=== PATIENT | female | born 1990 | race Caucasian/White ===

== ENCOUNTER → 2017-02-19 | Outpatient (CLI) | payer BC ==
[2017-02-19 07:46] LABS: BASOPHILS % 0.6 % (0.0-2.0); EOSINOPHILS % 3.7 % (0.0-5.0); HEMATOCRIT. 37.2 % (36.0-48.0); HEMOGLOBIN. 12.7 g/dL (12.0-16.0); LYMPHOCYTES % 41.5 % (20.0-50.0); MEAN CORPUSCULAR HEMOGLOBIN 28.9 pg (28.0-32.0); MEAN CORPUSCULAR VOLUME 84.6 fL (81.0-99.0); MONOCYTES % 8.8 % (2.0-8.0); NEUTROPHILS % 45.4 % (40.0-76.0); PLATELET 257 x1000/uL (130-400); RED CELL DISTRIBUTION WIDTH 14.4 % (11.6-14.6)
[2017-02-19 08:14] LABS: CARBON DIOXIDE 26 mEq/L (21-32); CHLORIDE 104 mEq/L (98-107); HDL CHOLESTEROL 46 mg/dL (40-59); LDL CHOLESTEROL 166 mg/dL (5-100); T4 FREE 1.04 ng/dL (0.76-1.46)
== END | disposition home or self-care (01) ==
LOC: LAB 07:15
PROVIDERS: ATTEND Specialist
DX: R00.9 Unspecified abnormalities of heart beat (principal)
CPT/HCPCS: 36415; 80053; 80061; 83036; 84439; 84443; 84481; 85025

== ENCOUNTER 2018-01-25 07:17 | Emergency (ER) | payer BC ==
[~2018-01-25] VITALS: Ht 160 cm; Wt 81.6 kg
[2018-01-25] MEDS ORDERED: SODIUM CHLORIDE 0.9% 1,000 ML IV ONE (07:33)
[2018-01-25 08:32] LABS: CLARITY URINE CLOUDY (CLEAR); COLOR URINE AMBER (YELLOW); KETONES URINE NEGATIVE (NEGATIVE); LEUKOCYTE ESTERASE URINE 1+ (NEGATIVE); NITRITE URINE NEGATIVE (NEGATIVE); OCCULT BLOOD URINE 3+ (NEGATIVE); PH URINE 5.5 (4.5-8.0); PROTEIN URINE 1+ (NEGATIVE); UROBILINOGEN URINE 0.2 E.U./dL (0.2-1.0)
[2018-01-25 08:54] LABS: *BARBITURATES SCREEN URINE NEGATIVE (NEGATIVE); *BENZODIAZEPINES SCREEN URINE NEGATIVE (NEGATIVE)
[2018-01-25 08:56] LABS: *COCAINE SCREEN URINE NEGATIVE (NEGATIVE); CANNABINOID URINE SCREEN NEGATIVE (NEGATIVE); METHADONE URINE SCREEN NEGATIVE (NEGATIVE); OPIATES URINE SCREEN NEGATIVE (NEGATIVE); PHENCYCLIDINE URINE SCREEN NEGATIVE (NEGATIVE)
[2018-01-25 08:57] LABS: *AMPHETAMINES SCREEN URINE NEGATIVE (NEGATIVE)
[2018-01-25 09:09] LABS: BASOPHILS % 0.7 % (0.0-2.0); EOSINOPHILS % 2.9 % (0.0-5.0); HEMATOCRIT. 38.4 % (36.0-48.0); HEMOGLOBIN. 13.4 g/dL (12.0-16.0); LYMPHOCYTES % 28.6 % (20.0-50.0); MEAN CORPUSCULAR HEMOGLOBIN 29.7 pg (28.0-32.0); MEAN CORPUSCULAR VOLUME 85.3 fL (81.0-99.0); MEAN PLATELET VOLUME 7.8 fl (7.4-10.4); MONOCYTES % 6.7 % (2.0-8.0); NEUTROPHILS % 61.1 % (40.0-76.0); PLATELET 286 x1000/uL (130-400)
[2018-01-25 09:15] LABS: CHLORIDE 103 mEq/L (98-107)
[2018-01-25 09:17] LABS: PARTIAL THROMBOPLASTIN TIME 28.1 sec (23.4-31.0); PROTHROMBIN TIME 10.1 sec (9.1-11.1)
[2018-01-25 09:19] LABS: HCG SCREEN NEGATIVE
[2018-01-25 09:26] LABS: B-HCG QUANTITATIVE < 1 mIU/mL (<3)
[2018-01-25 11:15] VITALS: BP 131/81
== END 2018-01-25 11:51 | disposition home or self-care (01) ==
LOC: ER 07:17
DX: N93.8 Other specified abnormal uterine and vaginal bleeding (principal); N39.0 Urinary tract infection, site not specified; R10.2 Pelvic and perineal pain; Z88.1 Allergy status to other antibiotic agents
CPT/HCPCS: 36415; 76830; 76856; 80048; 80305; 81003; 81025; 84702; 84703; 85025; 85610; 85730; 86850; 86900; 86901; 99285; J7030

== ENCOUNTER → 2018-10-31 | Outpatient (CLI) | payer BC ==
[2018-10-31 07:36] LABS: COLOR URINE YELLOW (YELLOW); KETONES URINE NEGATIVE (NEGATIVE); LEUKOCYTE ESTERASE URINE 1+ (NEGATIVE); NITRITE URINE NEGATIVE (NEGATIVE); OCCULT BLOOD URINE NEGATIVE (NEGATIVE); PROTEIN URINE NEGATIVE (NEGATIVE); SPECIFIC GRAVITY URINE 1.028 (1.005-1.030); UROBILINOGEN URINE 0.2 E.U./dL (0.2-1.0)
[2018-10-31 07:39] LABS: CLARITY URINE CLEAR (CLEAR)
[2018-10-31 07:43] LABS: CHLORIDE 105 mEq/L (98-107)
[2018-10-31 07:48] LABS: BASOPHILS % 0.6 % (0.0-2.0); EOSINOPHILS % 2.6 % (0.0-5.0); HEMATOCRIT. 40.3 % (36.0-48.0); HEMOGLOBIN. 13.7 g/dL (12.0-16.0); LYMPHOCYTES % 33.4 % (20.0-50.0); MEAN CORPUSCULAR HEMOGLOBIN 29.1 pg (28.0-32.0); MEAN CORPUSCULAR VOLUME 85.7 fL (81.0-99.0); MEAN PLATELET VOLUME 8.2 fl (7.4-10.4); MONOCYTES % 7.4 % (2.0-8.0); PLATELET 296 x1000/uL (130-400)
[2018-10-31 07:51] LABS: LDL CHOLESTEROL 149 mg/dL (5-100)
[2018-10-31 07:53] LABS: HDL CHOLESTEROL 45 mg/dL (40-59)
== END | disposition home or self-care (01) ==
LOC: LAB 07:08
DX: Z00.00 Encounter for general adult medical examination without abnormal findings (principal)
CPT/HCPCS: 36415; 80061; 83036; 84443

== ENCOUNTER 2022-03-01 06:48 | Emergency (ER) | payer BC ==
[~2022-03-01] VITALS: Ht 160 cm; Wt 85.1 kg
[2022-03-01 06:55] VITALS: BP 112/68
[2022-03-01 08:05] LABS: CLARITY URINE CLOUDY (CLEAR); COLOR URINE YELLOW (YELLOW); KETONES URINE NEGATIVE (NEGATIVE); LEUKOCYTE ESTERASE URINE 3+ (NEGATIVE); NITRITE URINE NEGATIVE (NEGATIVE); OCCULT BLOOD URINE 3+ (NEGATIVE); PH URINE 6.5 (4.5-8.0); PROTEIN URINE TRACE (NEGATIVE); SPECIFIC GRAVITY URINE 1.022 (1.005-1.030)
[2022-03-01 08:43] LABS: BASOPHILS % 0.6 % (0.0-2.0); EOSINOPHILS % 1.7 % (0.0-5.0); HEMATOCRIT. 37.3 % (36.0-48.0); HEMOGLOBIN. 12.9 g/dL (12.0-16.0); LYMPHOCYTES % 21.5 % (20.0-50.0); MEAN CORPUSCULAR HEMOGLOBIN 30.6 pg (28.0-32.0); MEAN CORPUSCULAR VOLUME 88.5 fL (81.0-99.0); MEAN PLATELET VOLUME 7.8 fl (7.4-10.4); MONOCYTES % 6.6 % (2.0-8.0); NEUTROPHILS % 69.6 % (40.0-76.0); PLATELET 309 x1000/uL (130-400); RED BLOOD CELL COUNT 4.22 mill/uL (4.2-5.4); RED CELL DISTRIBUTION WIDTH 14.7 % (11.6-14.6)
[2022-03-01 08:58] LABS: CHLORIDE 105 mEq/L (98-107)
[2022-03-01] MEDS ORDERED: NITR100C PO (09:17)
[2022-03-01 09:34] LABS: B-HCG QUANTITATIVE 130373 mIU/mL (<3)
== END 2022-03-01 09:31 | disposition home or self-care (01) ==
LOC: ER 06:48
DX: O20.0 Threatened abortion (principal); O23.41 Unspecified infection of urinary tract in pregnancy, first trimester; N39.0 Urinary tract infection, site not specified; Z3A.01 Less than 8 weeks gestation of pregnancy; Z98.890 Other specified postprocedural states; Z88.1 Allergy status to other antibiotic agents
CPT/HCPCS: 36415; 76801; 80053; 81003; 81025; 84702; 85025; 86850; 86900; 99284

== ENCOUNTER → 2022-06-20 | Outpatient (CLI) | payer BC ==
[~2022-06-20] MED LIST: NITR100C PO
== END | disposition home or self-care (01) ==
LOC: US 15:51
PROVIDERS: ATTEND Obstetrics & Gynecology
DX: Z36.89 Encounter for other specified antenatal screening (principal); Z3A.24 24 weeks gestation of pregnancy
CPT/HCPCS: 76805

== ENCOUNTER 2022-10-06 17:09 | Inpatient (IN) | payer BC ==
[~2022-10-06] VITALS: Ht 160 cm; Wt 74.8 kg
[2022-10-06] MEDS ORDERED: PREN-176 PO (20:53)
[2022-10-06] MEDS: LACTATED RINGERS 1,000 ML IV SCH ×2 (21:42→22:07)
[2022-10-06 21:47] LABS: BASOPHILS % 0.3 % (0.0-2.0); EOSINOPHILS % 0.9 % (0.0-5.0); HEMATOCRIT. 35.3 % (36.0-48.0); HEMOGLOBIN. 12.1 g/dL (12.0-16.0); LYMPHOCYTES % 21.9 % (20.0-50.0); MEAN CORPUSCULAR HEMOGLOBIN 31.2 pg (28.0-32.0); MEAN CORPUSCULAR VOLUME 91.1 fL (81.0-99.0); MEAN PLATELET VOLUME 9.6 fl (7.4-10.4); MONOCYTES % 9.6 % (2.0-8.0); NEUTROPHILS % 67.3 % (40.0-76.0); PLATELET 287 x1000/uL (130-400); RED BLOOD CELL COUNT 3.88 mill/uL (4.2-5.4)
[2022-10-06 21:49] LABS: CLARITY URINE TURBID (CLEAR); COLOR URINE DARK YELLOW (YELLOW); KETONES URINE TRACE (NEGATIVE); LEUKOCYTE ESTERASE URINE 3+ (NEGATIVE); NITRITE URINE POSITIVE (NEGATIVE); OCCULT BLOOD URINE NEGATIVE (NEGATIVE); PROTEIN URINE 1+ (NEGATIVE); SPECIFIC GRAVITY URINE 1.025 (1.005-1.030)
[2022-10-06 22:00] LABS: INR 0.9; PARTIAL THROMBOPLASTIN TIME 29.1 sec (23.4-31.0)
[2022-10-06 22:04] LABS: *AMPHETAMINES SCREEN URINE NEGATIVE (NEGATIVE); *BARBITURATES SCREEN URINE NEGATIVE (NEGATIVE); *BENZODIAZEPINES SCREEN URINE NEGATIVE (NEGATIVE); *COCAINE SCREEN URINE NEGATIVE (NEGATIVE); CANNABINOID URINE SCREEN NEGATIVE (NEGATIVE); METHADONE URINE SCREEN NEGATIVE (NEGATIVE); OPIATES URINE SCREEN NEGATIVE (NEGATIVE); PHENCYCLIDINE URINE SCREEN NEGATIVE (NEGATIVE)
[2022-10-06] MEDS ORDERED: MISOPROSTOL 100MCG TABLET VG SCH (22:15)
[2022-10-06 22:24] LABS: HEPATITIS B SURFACE ANTIGEN NEGATIVE
[2022-10-06] MEDS ORDERED: PENICILLIN G POTASSIUM 5 MMU in DEXT 5% WATER 100 ML IV NR (23:00)
[2022-10-07] MEDS ORDERED: ROPIVACAINE HCL/PF EPIDURAL 200 ML EPI SCH (00:15)
[2022-10-07] MEDS ORDERED: ROPIVACAINE HCL/PF EPIDURAL 200 ML EPI ONE (00:23)
[2022-10-07] MEDS ORDERED: FENTANYL CITRATE/PF 50MCG/ML 2ML VIAL ONE (01:30)
[2022-10-07] MEDS ORDERED: GLYCERIN/WITCH HAZEL LEAF MEDICATED PAD TOP PRN (02:30)
[2022-10-07] MEDS ORDERED: METHYLERGONOVINE MALEATE 0.2 MG/ML IM PRN (02:30)
[2022-10-07] MEDS ORDERED: RHO(D) IMMUNE GLOBULIN 300 MCG/SYR IM PRN (02:30)
[2022-10-07] MEDS ORDERED: HEMORRHOIDAL SUPP PR PRN (02:30)
[2022-10-07] MEDS ORDERED: BENZOCAINE/LANOLIN/ALOE VERA SPRAY TOP PRN (02:30)
[2022-10-07] MEDS ORDERED: IBUPROFEN 400MG TABLET PO PRN (02:30)
[2022-10-07] MEDS ORDERED: ACETAMINOPHEN WITH CODEINE 300/30MG TABLET PO PRN ×2 (02:30)
[2022-10-07] MEDS ORDERED: LANOLIN OINT 7GM TUBE TOP PRN (02:30)
[2022-10-07] MEDS ORDERED: BISACODYL 10MG SUPP PR PRN (02:30)
[2022-10-07] MEDS ORDERED: OXYTOCIN 30 UNITS/500ML NS PMX 500 ML IV SCH (02:30)
[2022-10-07] MEDS ORDERED: DIPHENHYDRAMINE 25MG CAPSULE PO PRN (02:30)
[2022-10-07] MEDS ORDERED: PENICILLIN G POTASSIUM 2.5 MMU in DEXTROSE 5% WATER 50 ML IV SCH (03:00)
[2022-10-07] MEDS: OXYTOCIN 30 UNITS/500ML NS PMX 500 ML IV SCH (03:27)
[2022-10-07 04:40] VITALS: BP 111/78
[2022-10-07] MEDS: MAGNESIUM/ALUMINUM HYDROXIDE/SIMETHICONE 30ML UDC PO SCH ×4 (07:30→21:01)
[2022-10-07 07:45] VITALS: BP 85/51
[2022-10-07] MEDS: PRENATAL VIT/FE FUMARATE/FA TABLET PO SCH (08:13)
[2022-10-07 15:50] VITALS: BP 85/48
[2022-10-07 19:30] VITALS: BP 90/60
[2022-10-08 04:00] VITALS: BP 90/49
[2022-10-08] MEDS: OXYTOCIN 30 UNITS/500ML NS PMX 500 ML IV SCH (04:19)
[2022-10-08 08:00] VITALS: BP 92/55
[2022-10-08 08:02] LABS: BASOPHILS % 0.4 % (0.0-2.0); EOSINOPHILS % 1.8 % (0.0-5.0); HEMATOCRIT. 31.5 % (36.0-48.0); HEMOGLOBIN. 10.9 g/dL (12.0-16.0); LYMPHOCYTES % 24.6 % (20.0-50.0); MEAN CORPUSCULAR HEMOGLOBIN 31.6 pg (28.0-32.0); MEAN CORPUSCULAR VOLUME 91.2 fL (81.0-99.0); MEAN PLATELET VOLUME 9.2 fl (7.4-10.4); MONOCYTES % 7.6 % (2.0-8.0); NEUTROPHILS % 65.6 % (40.0-76.0); PLATELET 240 x1000/uL (130-400); RED BLOOD CELL COUNT 3.46 mill/uL (4.2-5.4); RED CELL DISTRIBUTION WIDTH 13.9 % (11.6-14.6)
[2022-10-08] MEDS: PRENATAL VIT/FE FUMARATE/FA TABLET PO SCH (09:14)
== END 2022-10-08 14:00 | disposition home or self-care (01) | DRG 807 ==
LOC: 8 EST LDRP 17:09 → OBSVTOIN 17:09 → 8EST 10-07 06:50
PROVIDERS: ADMIT Obstetrics & Gynecology; ATTEND Obstetrics & Gynecology
PROC: 10E0XZZ Delivery of Products of Conception, External Approach (ICD-10-PCS; principal; 2022-10-07)
DX: O48.0 Post-term pregnancy (principal); Z37.0 Single live birth; Z20.822 Contact with and (suspected) exposure to COVID-19; Z88.1 Allergy status to other antibiotic agents; Z3A.40 40 weeks gestation of pregnancy
CPT/HCPCS: 36415; 76805; 76818; 80305; 81003; 85025; 86592; 86703; 86762; 86850; 86900; 87340; 87426; 99281; G0378; J2540; J2795; J3010; J7060; J2590

== ENCOUNTER 2023-02-10 21:52 | Emergency (ER) | payer BC ==
[~2023-02-10] VITALS: Ht 160 cm; Wt 72.8 kg
[2023-02-10 21:57] VITALS: TEMP 97.6; O2SAT 100
[2023-02-10 22:46] LABS: BASOPHILS % 0.6 % (0.0-2.0); EOSINOPHILS % 3.2 % (0.0-5.0); HEMATOCRIT. 38.5 % (36.0-48.0); HEMOGLOBIN. 13.2 g/dL (12.0-16.0); LYMPHOCYTES % 30.1 % (20.0-50.0); MEAN CORPUSCULAR HEMOGLOBIN 30.3 pg (28.0-32.0); MEAN CORPUSCULAR HGB CONC 34.4 g/dL (31.0-37.0); MEAN CORPUSCULAR VOLUME 88.1 fL (81.0-99.0); MEAN PLATELET VOLUME 7.6 fl (7.4-10.4); MONOCYTES % 8.2 % (2.0-8.0); NEUTROPHILS % 57.9 % (40.0-76.0); PLATELET 338 x1000/uL (130-400); RED BLOOD CELL COUNT 4.37 mill/uL (4.2-5.4); RED CELL DISTRIBUTION WIDTH 13.8 % (11.6-14.6); WHITE BLOOD COUNT 8.9 x1000/uL (4.5-11.0)
[2023-02-10 22:54] LABS: CHLORIDE 111 mEq/L (98-107); INDEX HEMOLYSI 1 (1-3); INDEX ICTERIC 1 (1-4); INDEX LIPEMIC 1 (1-3); POTASSIUM 4.2 mEq/L (3.5-5.1); SODIUM 140 mEq/L (136-145)
[2023-02-10 23:01] LABS: ALANINE AMINOTRANSFERASE 25 IU/L (13-61); ALBUMIN 3.6 g/dL (3.4-5.0); ASPARTATE AMINOTRANSFERASE 15 IU/L (15-37); BILIRUBIN TOTAL 0.2 mg/dL (0.1-1.0); CALCIUM 8.8 mg/dL (8.5-10.1); CARBON DIOXIDE 28 mEq/L (21-32); CREATININE 0.8 mg/dL (0.6-1.3); GLUCOSE 84 mg/dL (70-105); PROTEIN TOTAL 7.5 g/dL (6.0-8.3); UREA NITROGEN BLOOD 11 mg/dL (7-21)
[2023-02-10 23:38] LABS: PROTHROMBIN TIME 10.5 sec (9.6-11.0)
[2023-02-11 01:21] VITALS: BP 102/66; PULSE 92; RESP 16
[2023-02-11 02:51] LABS: CLARITY URINE TURBID (CLEAR); COLOR URINE DARK YELLOW (YELLOW); GLUCOSE URINE NEGATIVE (NEGATIVE); KETONES URINE NEGATIVE (NEGATIVE); LEUKOCYTE ESTERASE URINE 2+ (NEGATIVE); NITRITE URINE POSITIVE (NEGATIVE); OCCULT BLOOD URINE 3+ (NEGATIVE); PH URINE 5.5 (4.5-8.0); PROTEIN URINE 1+ (NEGATIVE); SPECIFIC GRAVITY URINE 1.028 (1.005-1.030)
[2023-02-11 02:54] LABS: SQUAMOUS EPITHELIAL CELL URINE 1+ /lpf (RARE/1+); YEAST URINE NONE SEEN
[2023-02-11 03:13] LABS: UCG SCREEN NEGATIVE
[2023-02-11 05:29] LABS: BACTERIA URINE 2+
[2023-02-11 05:31] LABS: RBC URINE 50-100 /hpf (0-2)
== END 2023-02-11 01:24 | disposition home or self-care (01) ==
LOC: ER 21:52
DX: N93.8 Other specified abnormal uterine and vaginal bleeding (principal)
CPT/HCPCS: 36415; 76801; 80053; 81003; 81025; 84702; 85025; 86850; 86900; 99284

== ENCOUNTER 2024-06-21 22:31 | Emergency (ER) | payer BC ==
[~2024-06-21] VITALS: Ht 160 cm; Wt 77.0 kg
[2024-06-21 22:36] VITALS: O2SAT 99
[2024-06-21] MEDS ORDERED: AMOX1TAB16 MT (23:06)
[2024-06-22 00:05] VITALS: BP 128/83; PULSE 92; RESP 18; TEMP 36.7; O2SAT 99
[2024-06-22] MEDS: BACITRACIN ZINC OINT UDPKT TOP ONE (00:05)
== END 2024-06-22 00:24 | disposition home or self-care (01) ==
LOC: ER 22:31
DX: S90.812A Abrasion, left foot, initial encounter (principal); S90.811A Abrasion, right foot, initial encounter; Z88.1 Allergy status to other antibiotic agents; W54.0XXA Bitten by dog, initial encounter; Y93.89 Activity, other specified; Y92.89 Other specified places as the place of occurrence of the external cause; Y99.8 Other external cause status
CPT/HCPCS: 99283

== ENCOUNTER → 2025-03-11 | Outpatient (CLI) | payer BC ==
[~2025-03-11] MED LIST changes: +AMOX1TAB16 MT
== END | disposition home or self-care (01) ==
LOC: US 07:16
DX: E78.2 Mixed hyperlipidemia (principal)
CPT/HCPCS: 76700